=== PATIENT | female | born 1980 | race Caucasian/White ===

== ENCOUNTER 2020-03-22 19:56 | Emergency (ER) | payer BC, OTHER ==
[2020-03-22] MEDS ORDERED: Doxycycline 100 MG Tab PO ONE (19:57)
--- NOTE | 2020-03-22 20:09 | EDM.PDOC ---
ED HPI GENERAL MEDICAL PROBLEM - General Chief Complaint: General Stated Complaint: hand trauma bird bite Time Seen by Provider: 03/22/20 19:59 Source of Information: Reports: Patient History Limitations: Reports: No Limitations - History of Present Illness INITIAL COMMENTS - FREE TEXT/NARRATIVE: Ramandeep is a 39 yo female who presents to the ED with concerns of a bird bite to her right hand. She states she has a Green Wing Macaw and it is her own bird that she has at home. She states the bird was stepping up to stand on her hand and for some reason latched on to her right hand. States she didn't pull her hand away and waited for the bird to let go. She states her hand immediately swelled up. States her Tetanus is up to date. Onset: Today Onset Date: 03/22/20 Right Hand Pain Score (Numeric/FACES): 4 - Related Data Allergies Allergy/AdvReac Type Severity Reaction Status Date / Time morphine Allergy Cannot Verified 03/22/20 19:58 Remember Sulfa (Sulfonamide Allergy Cannot Verified 03/22/20 19:58 Antibiotics) Remember Home Meds: Home Meds . [Unable to Verify Home Med List] 03/22/20 [History] Past Medical History HEENT History: Reports: None Cardiovascular History: Reports: Hypertension Respiratory History: Reports: None Gastrointestinal History: Reports: None Musculoskeletal History: Reports: Back Pain, Chronic Neurological History: Reports: None Psychiatric History: Reports: Depression Oncologic (Cancer) History: Reports: None Dermatologic History: Reports: None - Past Surgical History Female Surgical History: Reports: Hysterectomy, Other (See Below) (kidney surgery) Neurological Surgical History: Reports: Lumbar Spine, Spinal Fusion Social & Family History - Family History Family Medical History: Noncontributory - Tobacco Use Smoking Status *Q: Current Every Day Smoker Tobacco Use Within Last Twelve Months: Cigarettes - Alcohol Use Alcohol Use Frequency: Socially - Living Situation & Occupation Living situation: Reports: Occupation: Employed ED ROS GENERAL - Review of Systems Review Of Systems: Comprehensive ROS is negative, except as noted in HPI. ED EXAM, GENERAL - Physical Exam Exam: See Below Exam Limited By: No Limitations General Appearance: Alert, Anxious Extremities: Normal Capillary Refill Neurological: Alert, Oriented Psychiatric: Anxious Skin Exam: Wound/Incision (3cm X 1cm puncture/abrasion wound to dorsum of right hand - proximal to 2nd digit. Hematoma noted. ) Course - Vital Signs Last Recorded V/S: Last Vital Signs Temp 97 F 03/22/20 20:11 Pulse 84 03/22/20 20:11 Resp 18 03/22/20 20:11 BP 121/77 03/22/20 20:11 Pulse Ox 98 03/22/20 20:11 - Orders/Labs/Meds Orders: Active Orders 24 hr Category Date Time Status Hand Comp Min 3V Rt [CR] Stat Exams 03/22/20 20:00 Ordered Meds: Medications Discontinued Medications Generic Name Dose Route Start Last Admin Trade Name Myranda PRN Reason Stop Dose Admin Doxycycline Monohydrate 1 packet 03/22/20 20:14 03/22/20 20:25 Take Home: Doxycycline 100 Mg, 4 Tab Pack PO 03/22/20 20:15 1 packet ONETIME ONE Administration Neomycin/Polymyxin/Bacitracin 1 each 03/22/20 20:16 03/22/20 20:24 Triple Antibiotic Oint TOP 03/22/20 20:17 1 each ONETIME ONE Administration Departure - Departure Time of Disposition: 20:22 Disposition: Home, Self-Care 01 Clinical Impression: Bite wound of hand - Discharge Information Instructions: Animal Bite, Adult, [id number] Forms: ED Department Discharge Additional Instructions: 1) Doxycycline 100mg twice a day for 10 days. 2) Recommend taking 1000mg of Tylenol with 400mg of ibuprofen every 6 hours as needed for pain 3) Apply triple antibiotic ointment daily. May wash with lukewarm water and bland liquid soap. 4) May ice 20 minutes at a time, which will help with swelling 5) If any increased warmth, purulent drainage, foul odor, increased discomfort... advise returning for reevaluation. 6) Tdap addressed today. Sepsis Event Note (ED) - Focused Exam Vital Signs: Vital Signs Temp Pulse Resp BP Pulse Ox 03/22/20 20:11 97 F 84 18 121/77 98 - Problem List & Annotations (1) Bite wound of hand SNOMED Code(s): 447619500, 172231091 Code(s): S61.459A - OPEN BITE OF UNSPECIFIED HAND, INITIAL ENCOUNTER Status: Acute Qualifiers: Encounter type: initial encounter Laterality: right Qualified Code(s): S61.451A - Open bite of right hand, initial encounter - My Orders Last 24 Hours: My Active Orders 03/22/20 20:00 Hand Comp Min 3V Rt [CR] Stat - Assessment/Plan Last 24 Hours: My Active Orders 03/22/20 20:00 Hand Comp Min 3V Rt [CR] Stat Plan: Wound cleansed with SurCleanse. Triple antibiotic ointment applied. Advised to take Doxycycline as directed as prophylaxis for pasteurellosis and psittacosis infections. Tdap addressed and advised updating as last given in 2011, patient declined. See additional instructions.
[2020-03-22] MEDS: Bacitracin/Neomycin/Polymyxin B Oint 0.9 GM U/D Packet TOP ONE (20:24)
[2020-03-22] MEDS: Take Home: Doxycycline 100 MG Tab, 4 Tab Pack PO ONE (20:25)
== END 2020-03-22 20:30 | disposition home or self-care (01) ==
LOC: CC.ED 19:56
DX: S61.451A Open bite of right hand, initial encounter (principal); I10 Essential (primary) hypertension; F17.210 Nicotine dependence, cigarettes, uncomplicated; Z88.5 Allergy status to narcotic agent; Z88.2 Allergy status to sulfonamides; W61.11XA Bitten by macaw, initial encounter; Y92.009 Unspecified place in unspecified non-institutional (private) residence as the place of occurrence of the external cause
CPT/HCPCS: 73130-RT; 99283; A9270-GY

== ENCOUNTER 2020-05-23 14:35 | Emergency (ER) | payer BC ==
[2020-05-23] MEDS ORDERED: traMADol 50 MG Tab PO ONE (14:36)
[2020-05-23] MEDS ORDERED: Metoprolol Tartrate 5 MG/5 ML SDV IVPUSH ONE (15:33)
[2020-05-23 15:43] LABS: CHLORIDE,CL 106 mEq/L (98-106); SODIUM,NA 141 mEq/L (136-145)
[2020-05-23] MEDS: Metoprolol Tartrate 5 MG/5 ML SDV IV ONE (15:47)
[2020-05-23] MEDS: Metoprolol Tartrate 5 MG/5 ML SDV IVPUSH ONE (15:48)
[2020-05-23] MEDS: Lactated Ringers 1,000 ML IV SCH (16:57)
--- NOTE | 2020-05-23 16:57 | EDM.PDOC ---
ED HPI GENERAL MEDICAL PROBLEM - General Chief Complaint: Headache Stated Complaint: ER Time Seen by Provider: 05/23/20 15:35 Source of Information: Reports: Patient, EMS, Family History Limitations: Reports: Other (aphasia) - History of Present Illness INITIAL COMMENTS - FREE TEXT/NARRATIVE: Ramandeep is a 39 yo female who presents to the ED with c/o headache and difficulty speaking. Stroke code called once aphasia was identified. NIH 2. She reports she laid down for nap at 12:30 and when she woke up at 1:12 she realized she was having trouble speaking. She reports she feels like she can comprehend things but is unable to get the words out that she wants to say. She is able to write her thoughts down to communicate. She reports she couldn't remember her password to her cell phone so she clicked button on the side until it called 911. She is brought in by EMS. EMS reports BP upon arrival to scene was 200s/100s. She reports she has had this headache for the past week and cannot seem to get rid of it. Reports it radiates down to her neck. Was seen via telehealth by urgent care clinic provider in [place] earlier this week and got a Toradol and Rocephin injection. Did have some relief of headache initially, but then it came back shortly after. She has not checked her BP this week. She reports she does not typically get headaches. No hx of migraines. She denies any dizziness, malaise, CP, SOB, N/V/D, urinary symptoms. Onset: Today, Sudden Onset Date: 05/23/20 Onset Time: 13:12 Duration: Improving Location: Reports: Other (aphasia) Improves with: Reports: None Associated Symptoms: Reports: Headaches, Weakness. Denies: Confusion, Chest Pain, Cough, cough w sputum, Diaphoresis, Fever/Chills, Loss of Appetite, Malaise, Nausea/Vomiting, Rash, Seizure, Shortness of Breath, Syncope Treatments HOME HEALTH CARE PROVIDER: Reports: Acetaminophen, NSAIDS Headache Pain Score (Numeric/FACES): 10 - Related Data Allergies Allergy/AdvReac Type Severity Reaction Status Date / Time morphine Allergy Cannot Verified 05/23/20 15:56 Remember Sulfa (Sulfonamide Allergy Cannot Verified 05/23/20 15:56 Antibiotics) Remember Home Meds: Home Meds Lisdexamfetamine Dimesylate [Vyvanse] 1 cap PO DAILY 03/22/20 [History] Omeprazole 20 mg PO DAILY 03/22/20 [History] dilTIAZem HCL [Diltiazem ER] 360 mg PO DAILY 03/22/20 [History] Acetaminophen [Tylenol Extra Strength] 2,000 mg PO ASDIRECTED PRN 05/23/20 [History] Ibuprofen 200 mg PO ASDIRECTED PRN 05/23/20 [History] Losartan/Hydrochlorothiazide [Losartan-HCTZ 50-12.5 MG] 1 tab PO DAILY 90 Days #90 tablet 05/23/20 [Rx] Metoprolol Succinate [Toprol XL 100mg] 100 mg PO DAILY 05/23/20 [History] QUEtiapine [SEROquel] 50 mg PO DAILY 05/23/20 [History] Triazolam 0.25 mg PO DAILY 05/23/20 [History] Past Medical History HEENT History: Reports: None Cardiovascular History: Reports: Hypertension Respiratory History: Reports: None Gastrointestinal History: Reports: None Genitourinary History: Reports: Other (See Below) Other Genitourinary History: kidney surgery age 15 yrs [employer] History: Reports: Ectopic Musculoskeletal History: Reports: Back Pain, Chronic Other Musculoskeletal History: back surgery. fusion L5-S1 2014 Neurological History: Reports: Vertigo Psychiatric History: Reports: Depression Oncologic (Cancer) History: Reports: None Dermatologic History: Reports: None - Infectious Disease History Infectious Disease History: Reports: Shingles - Past Surgical History HEENT Surgical History: Reports: Tonsillectomy GI Surgical History: Reports: Appendectomy, Cholecystectomy Female Surgical History: Reports: Tubal Ligation Other Female Surgeries/Procedures: ectopic Neurological Surgical History: Reports: Lumbar Spine, Spinal Fusion Social & Family History - Family History Family Medical History: Noncontributory - Tobacco Use Smoking Status *Q: Current Every Day Smoker Years of Tobacco use: 20 Packs/Tins Daily: 1 - Caffeine Use Caffeine Use: Reports: Coffee, Energy Drinks - Recreational Drug Use Recreational Drug Use: No - Living Situation & Occupation Living situation: Reports: Occupation: Employed ED ROS GENERAL - Review of Systems Review Of Systems: Comprehensive ROS is negative, except as noted in HPI. - Physical Exam Exam: See Below Exam Limited By: Language Barrier (expressive aphasia) General Appearance: Alert, WD/WN, Anxious Eye Exam: Bilateral Eye: EOMI, Normal Fundi, Normal Inspection, PERRL Ears: Normal External Exam, Normal Canal, Hearing Grossly Normal, Normal TMs Nose: Normal Inspection, Normal Mucosa, No Blood Throat/Mouth: Normal Inspection, Normal Lips, Normal Teeth, Normal Gums, Normal Oropharynx, Normal Voice, No Airway Compromise Head Exam: Atraumatic, Normocephalic Neck: Normal Inspection, Supple, Non-Tender, Full Range of Motion Respiratory/Chest: No Respiratory Distress, Lungs Clear, Normal Breath Sounds, No Accessory Muscle Use, Chest Non-Tender Cardiovascular: Normal Peripheral Pulses, Regular Rate, Rhythm, No Edema, No Gallop, No JVD, No Murmur, No Rub GI/Abdominal: Normal Bowel Sounds, Soft, Non-Tender, No Organomegaly, No Dis tention, No Abnormal Bruit, No Mass Neuro Exam (Abbreviated): Alert, Oriented, CN II-XII Intact, Normal Cognition, Normal Gait, No Motor/Sensory Deficits, Other (expressive aphasia). No: Confused, Memory Loss Remote Events, Memory Loss Recent Events Back Exam: Normal Inspection, Full Range of Motion, NT Extremities: Normal Inspection, Normal Range of Motion, Non-Tender, No Pedal Edema, Normal Capillary Refill Psychiatric: Anxious, Tearful Skin Exam: Warm, Dry, Intact, Normal Color, No Rash EKG INTERPRETATION EKG Date: 05/23/20 Rhythm: NSR [place]: Normal P-Wave: Present QRS: Normal ST-T: Normal QT: Normal Comparison: NA - No Prior EKG Course - Vital Signs Last Recorded V/S: Last Vital Signs Temp 98 F 05/23/20 18:19 Pulse 79 05/23/20 18:19 Resp 18 05/23/20 18:19 BP 130/70 05/23/20 18:19 Pulse Ox 96 05/23/20 18:19 - Orders/Labs/Meds Orders: Active Orders 24 hr Category Date Time Status Head wo Cont [CT] Stat Exams 05/23/20 14:56 Taken ACETAMINOPHEN [REF] Stat Lab 05/23/20 15:42 Received Labs: Laboratory Tests 05/23/20 05/23/20 05/23/20 Range/Units 14:45 15:12 15:20 WBC 10.7 H (5.0-10.0) 10^3/uL RBC 4.76 (4.00-5.50) 10^6/uL Hgb 14.0 (12.0-16.0) g/dL Hct 41.6 (37.0-47.0) % MCV 87.4 (82.0-94.0) fL MCH 29.4 (27.0-32.0) pg MCHC 33.7 (33.0-38.0) g/dL RDW Coeff of Marcial 13.9 (11.0-15.0) % Plt Count 306 (150-400) 10^3/uL Neut % (Auto) 56.3 (35-85) % Lymph % (Auto) 31.4 (10-55) % [place] % (Auto) 6.6 (0-16) % Eos % (Auto) 5.2 H (0-5) % Baso % (Auto) 0.5 (0-3) % Neut # (Auto) 6.04 (1.80-7.00) 10^3/uL Lymph # (Auto) 3.37 (1.00-4.80) 10^3/uL [place] # (Auto) 0.71 (0.00-0.80) 10^3/uL Eos # (Auto) 0.56 H (0.00-0.45) 10^3/uL Baso # (Auto) 0.05 10^3/uL ESR 18 (0-20) mm/hr Sodium (136-145) mEq/L Potassium (3.5-5.0) mEq/L Chloride (98-106) mEq/L Carbon Dioxide (21-32) mmol/L BUN (7-18) mg/dL Creatinine (0.6-1.0) mg/dL Est Cr Clr Drug Dosing Estimated GFR (MDRD) (>=60) mL/min Glucose (75-99) mg/dL Calcium (8.4-10.1) mg/dL Magnesium (1.8-2.4) mg/dL Total Bilirubin (0.0-1.0) mg/dL AST (15-37) U/L ALT (12-78) U/L Alkaline Phosphatase (46-116) U/L Lactate Dehydrogenase (100-190) U/L Creatine Kinase (21-215) U/L Troponin I (0.00-0.06) ng/mL C-Reactive Protein (0.2-0.8) mg/dL Total Protein (6.4-8.2) g/dL Albumin (3.4-5.0) g/dL Urine Color Yellow (YELLOW) Urine Appearance Clear (CLEAR) Urine pH 7.5 (4.5-8.0) Ur Specific [place] 1.025 H (1.003-1.020) Urine Protein Negative (NEGATIVE) mg/dL Urine Glucose (UA) Negative (NEGATIVE) mg/dL Urine Ketones Negative (NEGATIVE) mg/dL Urine Occult Blood Trace-intact H (NEGATIVE) Urine Nitrite Negative (NEGATIVE) Urine Bilirubin Negative (NEGATIVE) Urine Urobilinogen 0.2 (0.2-1.0) EU/dL Ur Leukocyte Esterase Negative (NEGATIVE) Urine RBC 0-5 (0-5) /HPF Urine WBC Not seen (0-5) /HPF Ur Squamous Epith Cells Moderate H (NOT SEEN) /HPF COVID-19 (LUTHER) Negative (NEGATIVE) 05/23/20 05/23/20 Range/Units 15:20 15:20 WBC (5.0-10.0) 10^3/uL RBC (4.00-5.50) 10^6/uL Hgb (12.0-16.0) g/dL Hct (37.0-47.0) % MCV (82.0-94.0) fL MCH (27.0-32.0) pg MCHC (33.0-38.0) g/dL RDW Coeff of Marcial (11.0-15.0) % Plt Count (150-400) 10^3/uL Neut % (Auto) (35-85) % Lymph % (Auto) (10-55) % [place] % (Auto) (0-16) % Eos % (Auto) (0-5) % Baso % (Auto) (0-3) % Neut # (Auto) (1.80-7.00) 10^3/uL Lymph # (Auto) (1.00-4.80) 10^3/uL [place] # (Auto) (0.00-0.80) 10^3/uL Eos # (Auto) (0.00-0.45) 10^3/uL Baso # (Auto) 10^3/uL ESR (0-20) mm/hr Sodium 141 (136-145) mEq/L Potassium 4.3 (3.5-5.0) mEq/L Chloride 106 (98-106) mEq/L Carbon Dioxide 26 (21-32) mmol/L BUN 14 (7-18) mg/dL Creatinine 1.0 (0.6-1.0) mg/dL Est Cr Clr Drug Dosing TNP Estimated GFR (MDRD) > 60 (>=60) mL/min Glucose 131 H (75-99) mg/dL Calcium 9.0 (8.4-10.1) mg/dL Magnesium 2.0 (1.8-2.4) mg/dL Total Bilirubin 0.2 (0.0-1.0) mg/dL AST 15 (15-37) U/L ALT 32 (12-78) U/L Alkaline Phosphatase 86 (46-116) U/L Lactate Dehydrogenase 114 (100-190) U/L Creatine Kinase 70 (21-215) U/L Troponin I < 0.017 (0.00-0.06) ng/mL C-Reactive Protein 1.8 H (0.2-0.8) mg/dL Total Protein 7.2 (6.4-8.2) g/dL Albumin 3.3 L (3.4-5.0) g/dL Urine Color (YELLOW) Urine Appearance (CLEAR) Urine pH (4.5-8.0) Ur Specific Mitchell (1.003-1.020) Urine Protein (NEGATIVE) mg/dL Urine Glucose (UA) (NEGATIVE) mg/dL Urine Ketones (NEGATIVE) mg/dL Urine Occult Blood (NEGATIVE) Urine Nitrite (NEGATIVE) Urine Bilirubin (NEGATIVE) Urine Urobilinogen (0.2-1.0) EU/dL Ur Leukocyte Esterase (NEGATIVE) Urine RBC (0-5) /HPF Urine WBC (0-5) /HPF Ur Squamous Epith Cells (NOT SEEN) /HPF COVID-19 (LUTHER) (NEGATIVE) Meds: Medications Discontinued Medications Generic Name Dose Route Start Last Admin Trade Name Freq PRN Reason Stop Dose Admin Lactated Ringer's 1,000 mls @ 999 mls/hr 05/23/20 16:45 05/23/20 16:57 Ringers, Lactated IV 999 mls/hr ASDIRECTED MARIS Administration Ketorolac Tromethamine 30 mg 05/23/20 17:29 05/23/20 17:32 Toradol IVPUSH 05/23/20 17:30 30 mg ONETIME ONE Administration Metoprolol Tartrate 2.5 mg 05/23/20 15:21 05/23/20 15:48 Lopressor IVPUSH 05/23/20 15:22 Not Given ONETIME ONE Metoprolol Tartrate 2.5 mg 05/23/20 15:30 05/23/20 15:47 Lopressor IV 05/23/20 15:31 2.5 mg ONETIME ONE Administration Orphenadrine Citrate 60 mg 05/23/20 16:38 05/23/20 16:41 Norflex IM 05/23/20 16:39 Not Given ONETIME ONE Orphenadrine Citrate 60 mg 05/23/20 16:39 05/23/20 16:57 Norflex IV 05/23/20 16:40 60 mg ONETIME ONE Administration Tramadol HCl 200 mg 05/23/20 14:36 Ultram PO 05/23/20 14:37 .STK-MED ONE Tramadol HCl 1 packet 05/23/20 18:00 05/23/20 18:07 Take Home: Tramadol 50 Mg, 4 Tab Pack PO 05/23/20 18:01 1 packet ONETIME ONE Administration Tramadol HCl 50 mg 05/23/20 18:00 05/23/20 18:06 Ultram PO 05/23/20 18:01 50 mg ONETIME ONE Administration - Re-Assessments/Exams Free Text/Narrative Re-Assessment/Exam: TPA not indicated as CT negative for ischemic stroke and patient's symptoms resolved within 15 minutes of ED presentation. After approximately 15 minutes in ED, about 5 minutes after my examination, patient was speaking in full complete sentences with no aphasia. She reports she continues to have headache, which has been persistent for the past week. BP significantly elevated. 2.5 mg Lopressor IV administered and BP now normotensive. Patient does report improvement in headache. Discussed lab, EKG, and head CT results with patient and spouse. Labs all stable. CT negative for acute findings. BP continues to be normotensive. She reports headache has improved some. Recommended observation stay given my concern for TIA. Patient refuses and is adamant she be discharged home. After long discussion, she is agreeable to stay for IVF bolus and Norflex, as I feel headache tension related. Discussed my concern for discharge home given questionable TIA and ongoing headache. She continues to refuse. reports he will be home with her this evening. Departure - Departure Time of Disposition: 16:53 Disposition: Home, Self-Care 01 Condition: Fair Clinical Impression: Hypertensive urgency, Tension-type headache - Discharge Information *PRESCRIPTION DRUG MONITORING PROGRAM REVIEWED*: Not Applicable *COPY OF PRESCRIPTION DRUG MONITORING REPORT IN PATIENT AGAPITO: Not Applicable Prescriptions: Losartan/Hydrochlorothiazide [Losartan-HCTZ 50-12.5 MG] 1 tab PO DAILY 90 Days #90 tablet Instructions: Hypertension, Adult, [id number], Preventing Hypertension Referrals: Lamar Malave MD [Primary Care Provider] - Forms: ED Department Discharge Additional Instructions: - Continue Metoprolol and Diltiazem as previously directed - Start Hyzaar (losartan/hydrochlorothiazide). This will help both BP and swelling. Can start this tomorrow as you were given BP medications in ED. This can be picked up from pharmacy. - Rest and take it easy until headache improves - Try to drink at least 64 oz water daily - Recommend low sodium diet - Recommend monitoring BP at home twice daily the next few weeks. Bring BP log to clinic for f/u apt. - Strongly encourage follow up as outpatient in clinic with next 5-7 days for further workup and recheck BP - Return to ED for emergent needs Sepsis Event Note (ED) - Evaluation Sepsis Screening Result: No Definite Risk - Problem List & Annotations (1) Hypertensive urgency SNOMED Code(s): 651505641 Code(s): I16.0 - HYPERTENSIVE URGENCY Status: Acute (2) Tension-type headache SNOMED Code(s): 556448700 Code(s): G44.209 - TENSION-TYPE HEADACHE, UNSPECIFIED, NOT INTRACTABLE Status: Acute - My Orders Last 24 Hours: My Active Orders 05/23/20 14:56 Head wo Cont [CT] Stat 05/23/20 15:42 ACETAMINOPHEN [REF] Stat - Assessment/Plan Last 24 Hours: My Active Orders 05/23/20 14:56 Head wo Cont [CT] Stat 05/23/20 15:42 ACETAMINOPHEN [REF] Stat Assessment:: Hypertensive Urgency Tension Type Headache Plan: 39 yo female presents to ED with c/o aphasia and headache. BP significantly elevated upon arrival. Patient had expressive aphasia upon arrival, scoring NIH 2 upon admission to ED. She was able to comprehend and write out to communication. After about 15 minutes in ED aphasia resolved and patient able to speak without difficulty. She continued to be very anxious and tearful. EKG, labs and head CT all stable. No acute findings. BP did normalize after 2.5 mg Lopressor and remained normotensive throughout ED stay. Patient's headache did improve some but she continued to have pain. Initially adamant to discharge home. I recommended observation stay, to which patient strongly refused. After much discussion, she was agreeable to stay for fluids and meds to help headache. Initially tried Norflex, which did not get rid of headache. Patient then requested something else. Was given Toradol, to which patient reports "zero relief." She requested something to take at home as she wishes to go home. NIH 0 at time of discharge. She will be discharged home on Hyzaar to be taken daily, as well as Tramadol to use as needed for headache. She is strongly advised to follow up in the next 5-7 days for further workup given questionable TIA. Again, she refused observation stay. I do feel patient's symptoms potentially related to hypertensive urgency. She was also very anxious and tearful upon admission. Throughout ED stay patient remained alert and oriented and had no further difficulty speaking. Patient will be discharged home in satisfactory condition.
[2020-05-23] MEDS: Ketorolac 30 MG/ML SDV IVPUSH ONE (17:32)
[2020-05-23] MEDS: traMADol 50 MG Tab PO ONE (18:06)
[2020-05-23] MEDS: Take Home: traMADol 50 MG, 4 Tab Pack PO ONE (18:07)
== END 2020-05-23 18:19 | disposition home or self-care (01) ==
LOC: SUPCPDRO 14:35 → CC.ED 14:35
DX: I16.0 Hypertensive urgency (principal); I10 Essential (primary) hypertension; G44.209 Tension-type headache, unspecified, not intractable; F32.9 Major depressive disorder, single episode, unspecified; F17.210 Nicotine dependence, cigarettes, uncomplicated; Z88.5 Allergy status to narcotic agent; Z88.2 Allergy status to sulfonamides; Z79.899 Other long term (current) drug therapy
CPT/HCPCS: 36415; 70450; 80053; 80307; 81001; 82550; 83615; 83735; 84484; 85025; 85651; 86140; 93005; 96361; 96374; 96375; 99285-25; A9270-GY; J1885; J2360; J3490; J7120; U0002

== ENCOUNTER 2022-03-09 14:04 | Observation (INO) | payer BC ==
[2022-03-09 14:52] VITALS: BP 142/71; PULSE 94
[2022-03-09] MEDS ORDERED: Ibuprofen 200 MG Tab PO PRN (15:03)
[2022-03-09] MEDS ORDERED: Ketorolac 30 MG/ML SDV IVPUSH PRN (15:03)
[2022-03-09] MEDS ORDERED: Acetaminophen 325 MG Tab PO PRN (15:03)
[2022-03-09] MEDS ORDERED: LISDEXAMFETAMINE DIMESYLATE PO PRN (15:39)
[2022-03-09] MEDS ORDERED: TRIAZOLAM 0.25 MG PO PRN (15:39)
[2022-03-09] MEDS: cefTRIAXone 1 GM Vial IVPUSH SCH (15:44)
[2022-03-09] MEDS: Promethazine 12.5 MG in Sodium Chloride 0.9% 50 ML IV PRN (15:44)
[2022-03-09] MEDS: HYDROmorphone 0.5 MG/0.5 ML Syringe IVPUSH PRN (15:45)
[2022-03-09] MEDS: Sodium Chloride 0.9% 1,000 ML IV SCH (15:45)
[2022-03-09] MEDS ORDERED: Non-Formulary Medication 1 Each (Semaglutide [Ozempic] 1 MG/0.75 ML Pen.Injctr) SQ SCH (15:45)
[2022-03-09] MEDS ORDERED: Insulin Lispro 100 Units/ML 3 ML Vial SUBCUT PRN (16:03)
[2022-03-09] MEDS ORDERED: QUETIAPINE 50 MG PO SCH (20:00)
[2022-03-09] MEDS ORDERED: CLONIDINE 0.1 MG PO SCH (20:00)
[2022-03-09] MEDS ORDERED: Insulin Glarg,Human.Rec.Analog 100 Unit/ML SUBCUT SCH (20:00)
[2022-03-10] MEDS ORDERED: OMEPRAZOLE PO SCH (20:00)
== END 2022-03-09 19:57 | disposition home or self-care (01) ==
LOC: CC.MS 14:04 → UNDOADMOB 14:04 → CC.MS 15:03
PROVIDERS: ADMIT Nurse Practitioner Family; ATTEND Nurse Practitioner Family
DX: N12 Tubulo-interstitial nephritis, not specified as acute or chronic (principal); I10 Essential (primary) hypertension; E11.9 Type 2 diabetes mellitus without complications; F32.A Depression, unspecified; F17.210 Nicotine dependence, cigarettes, uncomplicated; Z88.2 Allergy status to sulfonamides; Z88.6 Allergy status to analgesic agent; Z79.4 Long term (current) use of insulin; Z79.899 Other long term (current) drug therapy
CPT/HCPCS: 36415; 80053; 85025; 86140; 96374; 96375; G0378; J0696; J1170; J2550; J7030